=== PATIENT | female | born 1990 | race Two or more races ===

== ENCOUNTER 2020-09-09 19:36 | Emergency (ER) | payer OTHER ==
[~2020-09-09] VITALS: Ht 167.6 cm; Wt 62.6 kg
== END 2020-09-09 23:26 | disposition home or self-care (01) ==
LOC: ER 19:36 → EMR PED 20:11 → ER 23:26
DX: K29.60 Other gastritis without bleeding (principal); Z20.828 Contact with and (suspected) exposure to other viral communicable diseases